=== PATIENT | female | born 1995 | race African-American/Black ===

== ENCOUNTER 2024-05-15 09:20 | Emergency (ER) | payer SELFPAY ==
[2024-05-15 09:20] VITALS: BP 124/72; PULSE 72; RESP 16; TEMP 36.6; O2SAT 98; BMI 30.7
--- NOTE | 2024-05-15 09:44 | EDS_ITS ---
HPI History of Present Illness Chief Complaint: Dental Detail of Chief Complaint: Dental pain tooth #12 and 13 per patient Informant: patient Onset/Context/Timing Onset: Yesterday Context: Sudden Onset Timing: Continuous Quality: Pain Location: Abnormality with tooth #12 and 13 per patient Current Severity: Mild Maximum Severity: Severe Worsened by: Chewing and cold liquids Associated Symptoms Assocated Symptom - Dental: face swelling and cold sensitivity; Negative for fever or jaw swelling Narrative Narrative: Patient is a 28-year-old woman who relocated from [place]. Patient had a dental appointment prior to coming to [place]. She was told by her dentist there are issues with tooth #12 and tooth #13. She presents because of chills. She is not complain of subjective fever or objective fever. She does report facial swelling and pain when she attempts to open and close her mouth. She has not anything to eat or drink in 48 hours. She states she does not have dental insurance. She has no allergies to medication. She denies drooling. She denies a traumatic fever, heart murmur or SBE. She has not noted any skin lesions. Prior similar symptoms: Yes Recent Illness/Hospitalization: No PFSH PFSH Medical History no medical history no medical history Home Medications ?Medication ?Instructions ?Recorded ?Last Taken ?Type hydrocodone-acetaminophen 5-325mg 1 tab PO Q6H PRN PRN Pain 3 days 05/15/24 Unknown Rx 5mg-325mg #10 TABLETS naproxen 500 mg tablet 500 mg PO BID #20 tabs 05/15/24 Unknown Rx penicillin V potassium 500 mg 500 mg PO 4X/DAY #40 tabs 05/15/24 Unknown Rx tablet Allergy/AdvReac Type Severity Reaction Status Date / Time No Known Allergies Allergy Verified 05/15/24 09:20 Surgical History no surgical history no surgical history [facility] ED Constitutional Constitutional ED: Reports chills; Denies fever(s), subjective or sweats Eyes Eyes: Denies blurry vision or change in vision ENT ENT ED: Reports other Details: Per HPI narrative ; Denies ear pain, rhinorrhea or sore throat Cardiovascular Cardiovascular: Denies chest pain, palpitations or racing heartbeat Respiratory/Chest Respiratory/Chest: Denies dyspnea Gastrointestinal Gastrointestinal: Denies nausea or vomiting Integumentary Denies rash Neurologic Neurologic: Denies headache(s) Hematologic/Lymphatic Hematologic/Lymphatic: Denies easy bleeding or easy bruising EXAM Physical Exam Const Vital Signs: 05/15/24 09:20 Temperature 97.8 F Temperature Source Temporal Pulse Rate 72 Respiratory Rate 16 Blood Pressure 124/72 H Blood Pressure Mean 89 Pulse Ox 98 Oxygen Delivery Method Room Air Positive well nourished and well developed Constitutional Narrative: Patient does not appear in obvious discomfort. General Appearance ED: well developed HEENT Reports TM's clear HEENT Narrative: There is tenderness over the left maxillary region. This would be superior to tooth #12 and 13. tenderness; Negative for trauma Face and Sinus: Negative for sinuses nontender Tympanic Membrane ED: Yes TM's clear Mouth ED: Yes lips normal, Yes tongue normal, Yes salivary gland normal, No mouth trauma and Yes oral and palatal mucosa abnormal Mouth: lips normal, tongue normal, salivary gland normal, No mouth trauma and oral and palatal mucosa abnormal Teeth and Gingiva: caries; Negative for gingiva abnormal, poor dentition or teeth discoloration Throat: posterior oropharynx normal Eyes PERRL and EOMs intact bilaterally Neck no lymphadenopathy, supple and no JVD Resp normal respiratory effort, no retractions and clear to auscultation bilaterally Cardio regular rate, regular rhythm, S1 normal heart sound, S2 normal heart sound and no murmurs Extremity normal to inspection Neuro oriented x3 and CN's II-XII intact bilaterally Sensorium / Orientation: alert Psych mental status grossly normal Skin no rashes or lesions noted MDM MDM MDM Narrative Medical decision making narrative: Patient has significant tenderness with tapping of tooth #12. Patient had severe pain drinking cold iced water. These findings are consistent with reversible pulpitis and clinically patient has an apical abscess. There is no evidence of fistulization. Patient received dose of Naprosyn and penicillin department. She was discharged prescription for [place], Naprosyn and penicillin. She also was given dental sheet. Discharge Plan Triage Chief Complaint: Dental ED Provider: Jaquan Mcgrath Dx/Rx/DC Orders Clinical Impression: Abscess, apical, Symptomatic reversible pulpitis Instructions: ED Dental Abscess Prescriptions: New hydrocodone-acetaminophen 5-325 mg tablet 1 tab PO Q6H PRN PRN (Reason: Pain) 3 Days Qty: 10 0RF penicillin V potassium 500 mg tablet 500 mg PO 4X/DAY Qty: 40 0RF naproxen 500 mg tablet 500 mg PO BID Qty: 20 0RF Primary Care Provider: Care Physician,No Primary Activity Restrictions/Additional Instructions: You will need to contact a local dentist. Your pain may go away in 2 weeks. If your pain lasts longer than 2 weeks you have irreversible pulpitis and the other 1 that we will be able to alleviate your pain as a dentist. Print Language: Albanian Disposition Disposition: Home, Self Care
[2024-05-15] MEDS: Naproxen 500 MG Tablet PO (10:24)
[2024-05-15] MEDS: Penicillin Vk 250 MG Tablet 500 MG PO (10:24)
[2024-05-15 10:32] VITALS: BP 140/76; PULSE 64; RESP 16; TEMP 36.6; O2SAT 99
--- NOTE | 2024-05-15 12:11 | CM.ED ---
Social work Reason for referral: Medicaid application request Referral source: Registration This SARAH and SARAH Chery were informed by registration that patient had recently moved from [place] to [place] and was interested in completing a Medicaid application. Patient was about to get discharged from the ED, so SARAH Chery printed an application and instructions on other ways that patient could apply. This SARAH and SARAH Chery entered patient room, identifying reason for visit. Patient stated she had been a resident of [place] for one month and patient had an [place] license. SARAH Chery explained patient options for applying for Medicaid and asked if patient had other needs. 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 Patient presented in the ED for dental reasons. Patient accepted resources of [facility] (due to medical and dental options) as well as a [facility] provider directory. No other needs identified at this time. Sunshine Nguyen, ENCAPSULATOR, CLINICAL NURSING ASSISTANT
== END 2024-05-15 10:34 | disposition home or self-care (01) ==
PROVIDERS: Emergency Provider Emergency Medicine; Visit Provider Emergency Medicine
DX: K08.89 Other specified disorders of teeth and supporting structures (principal); L02.91 Cutaneous abscess, unspecified; K04.01 Reversible pulpitis
CPT/HCPCS: 99283

== ENCOUNTER 2024-08-26 20:11 | Emergency (ER) | payer SELFPAY ==
[2024-08-26 20:11] VITALS: BP 109/63; PULSE 120; RESP 19; TEMP 37.4; O2SAT 97; BMI 30.7
--- NOTE | 2024-08-26 20:27 | EX.ED.DYSGE1 ---
HPI History of Present Illness Chief Complaint: General Illness Narrative Narrative: 8-year-old female who denies significant past medical history presents with chills, body aches, cough, and sore throat when she coughs. She relates history that she was here 2 days ago and her children were diagnosed with influenza A. One of her children also had strep throat. She started feeling badly today at work. She has not taken any medications. She states that she did not feel feverish but still very cold and her whole body hurts. No shortness of breath. [facility] Medical History (Updated 08/26/24 @ 21:35 by Scott Blanchard MD) Cough Home Medications ?Medication ?Instructions ?Recorded ?Last Taken ?Type oseltamivir 75 mg capsule (Tamiflu) 75 mg PO BID 5 days #10 caps 08/26/24 Unknown Rx Allergy/AdvReac Type Severity Reaction Status Date / Time No Known Allergies Allergy Verified 08/26/24 20:12 Social History Smoking Status: Never smoker ROS ROS ED ROS Narrative Constitutional: No fever, positive chills. Malaise. HEENT: Positive sore throat only when coughing. No neck pain. Cardiovascular: No chest pain. No palpitations. No pedal edema. Respiratory: Positive cough, no shortness of breath. Abdominal: No abdominal pain. No nausea. No vomiting. Genitourinary: No dysuria. No hematuria. Musculoskeletal: Multiple myalgias and arthralgias. Neurologic: No headaches. No dizziness. Positive lightheadedness. Overall feeling of malaise. Skin: No rash. No change in color. EXAM Physical Exam Narrative Exam Narrative: Afebrile, slightly elevated temperature of 99.3. Vital signs noted. Nontoxic-appearing. Neck soft and supple without meningismus. Airway patent. No drooling or trismus. No tonsillar exudate. Cardiovascular examination reveals mild tachycardia. Lungs are clear to auscultation bilaterally, moving a good amount of air, speaking in full sentences. Abdomen soft and nontender. Neurological examination nonfocal and nonlateralizing. Const Vital Signs: 08/26/24 20:11 08/26/24 20:11 08/26/24 20:49 Temperature 99.3 F H 99.3 F H Temperature Source Oral Oral Pulse Rate 120 H 120 H Respiratory Rate 19 H 19 H Respiratory Effort Normal Non-Labored Respiratory Pattern Normal Blood Pressure 109/63 109/63 Blood Pressure Mean 78 78 Pulse Ox 97 97 Oxygen Delivery Method Room Air Room Air MDM MDM MDM Narrative Medical decision making narrative: Differential diagnosis includes but not limited to viral syndrome from influenza A versus COVID versus RSV. I have low suspicion for strep pharyngitis based on her clinical examination and history. Additionally she has a cough with this. I do not feel she needs a rapid strep. However, I did offer to swab her for this and she declined as well. I favor influenza A as her kids were recently diagnosed with this. I do not feel chest x-ray is indicated because her pulse ox is 97% on room air. She was given ibuprofen 800 mg orally here and she was swabbed for COVID, influenza, and RSV. Should she be positive, she could start antivirals as she just became sick today. She will be given a note to be off work for the next 2 days. I reviewed her respiratory swab and she has positive for influenza A. She was given her first dose of Tamiflu here in the emergency department prescription written for the next 5 days. She was referred to a primary care provider. Return instructions to the emergency department were reviewed. Disposition is discharged home in stable condition. History & Record Review Discussion w/independent historian: Patient Lab Data Attestation: I reviewed the patient's lab results. Labs: Respiratory swab positive for influenza A. Discharge Plan Triage Chief Complaint: General Illness ED Provider: Scott Blanchard Dx/Rx/DC Orders Clinical Impression: Viral syndrome, Influenza A Instructions: ED Influenza (Adult), ED Viral Syndrome (Adult) Prescriptions: New oseltamivir [Tamiflu] 75 mg capsule 75 mg PO BID 5 Days Qty: 10 0RF Stand Alone Forms: ED Work / School Excuse Primary Care Provider: Care Physician,No Primary Referrals: Care Physician,No Primary [Primary Care Provider] - Marcos Gray, [facility] [[facility]] - 1 Week if not improving Activity Restrictions/Additional Instructions: Drink plenty of oral fluids. Rest. Take Tamiflu as directed. Tylenol and/or ibuprofen as needed for pain and fever. Return to the emergency department with increased difficulty breathing, new or worsening symptoms. Print Language: Turkmen Disposition Disposition: Home, Self Care
[2024-08-26] MEDS: Ibuprofen 400 MG Tablet 800 MG PO (20:36)
[2024-08-26] MEDS: Oseltamivir Phosphate 75 MG Capsule PO (21:34)
[2024-08-26 21:46] VITALS: BP 115/64; PULSE 95; RESP 16; TEMP 36.8; O2SAT 99
== END 2024-08-26 21:47 | disposition home or self-care (01) ==
PROVIDERS: Emergency Provider Emergency Medicine; Visit Provider Emergency Medicine
DX: J10.1 Influenza due to other identified influenza virus with other respiratory manifestations (principal); B34.9 Viral infection, unspecified
CPT/HCPCS: 87631; 99282

== ENCOUNTER 2024-10-07 21:48 | Emergency (ER) | payer MEDICAID, SELFPAY ==
[2024-10-07 21:48] VITALS: BP 99/63; PULSE 85; RESP 17; TEMP 36.6; O2SAT 98; BMI 30.3
[2024-10-07 23:03] LABS: Absolute Lymphocyte Count 1.96 X10^3/uL (0.83-4.51); Basophil# 0.02 X10^3/uL; Basophil% 0.4 % (0-1); Eosinophil# 0.25 X10^3/uL; Eosinophils% 4.5 % (0-5); Hemoglobin 10.2 g/dL (12.0-15.0); Lymphocyte # 1.96 X10^3/ul (0.83-4.51); Lymphocyte % 35.3 % (19-41); Mean Corp Hgb Conc 30.9 g/dL (32-36); Mean Corpuscular Hgb 22.9 pg (27.0-32.0); Mean Platelet Vol. 10.1 fl (6.2-12.0); Monocyte# 0.37 X10^3/uL; Monocyte% 6.7 % (0-10); NRBC Flagged by Analyzer 0 % (0-5); Neutrophil # 2.95 X10^3/uL (2.7-7.7); Neutrophil % 52.9 % (47-70); Platelet Count 324 K/mm3 (150-450); RBC Distribution Width CV 16.4 % (11.6-14.6); RBC Distribution Width SD 43.8 fl (35.1-43.9); Red Blood Count 4.46 M/mm3 (4.2-5.4); White Blood Count 5.6 K/mm3 (4.4-11.0)
--- NOTE | 2024-10-07 23:06 | EX.ED.DYSGE1 ---
HPI History of Present Illness Chief Complaint: General Illness Narrative Narrative: Chief complaint and HPI: Abdominal pain and concern for . 28-year-old female presents for evaluation of abdominal pain and concern for . Patient states for the past 3 days she has been having intermittent abdominal pain. She has had associated nausea but not frequent. She endorses 1 episode of nonbloody emesis. She states her last bowel movement was at 7 PM however it seemed more firm/constipated in nature. Her last intercourse was approximately 1 month ago. No protection. Not on control. Her last menstrual cycle was 3 weeks ago and it is regular. She denies any concern for STI. No vaginal bleeding. She denies any fever, chills, URI symptoms, chest pain, shortness of breath, cough, dysuria, hematuria. Review of systems: See HPI Medications: As listed on the chart Allergies: As listed on the chart PFSH: Per chart Vital signs: As listed on the chart. Reviewed. Physical exam: Gen: A&O x3, NAD Head: Normocephalic, atraumatic Eyes: No sclera icterus, conjunctiva clear ENT: Moist mucous membranes Neck: Trachea midline, No JVD CV: RRR, no murmurs, no peripheral edema Resp: Lungs CTA BL, no w/r/c GI: Abd soft, non-distended, non-tender, no r/r/g : No CVA tenderness Musc: Full ROM, no deformity Skin: Warm, dry Neuro: Alert, oriented, grossly intact, sensation intact PFSH PFSH Medical History (Updated 10/08/24 @ 00:[address] Deonte Avendaño DO) Cough Home Medications ?Medication ?Instructions ?Recorded ?Last Taken ?Type NK 10/07/24 Unknown History Allergy/AdvReac Type Severity Reaction Status Date / Time No Known Allergies Allergy Verified 10/07/24 21:49 Social History Smoking Status: Never smoker EXAM Physical Exam Const Vital Signs: 10/07/24 21:48 Temperature 98 F Temperature Source Temporal Pulse Rate 85 Respiratory Rate 17 Blood Pressure 99/63 Blood Pressure Mean 75 Pulse Ox 98 Oxygen Delivery Method Room Air MDM MDM MDM Narrative Medical decision making narrative: 28-year-old female presents for evaluation of abdominal pain and concern for . She had 1 episode of nonbilious emesis. Intermittent nausea. Endorses a firmer bowel movement this evening at 7 PM. Differential diagnosis includes but is not limited to viral illness, constipation, , UTI. Suspect less likely intra-abdominal infection such as colitis, cholecystitis, pancreatitis. Patient's physical exam is benign including her abdomen I do not think any imaging is needed at this time. This was discussed with the patient and she is in agreement. Her main concern is if she is . Patient declined anything for pain. Will obtain laboratory workup with urine and urine. CBC without leukocytosis. Patient has a heat anemia with hemoglobin of 10.2. Patient states she has a history of anemia. CMP relatively unremarkable. No STEVE. Lipase unremarkable. No transaminitis. UA negative for UTI. Urine negative. All of the patient's workup was discussed with her. Plan is for discharge home. Follow-up with PCP. Return precautions explained. She confirmed understanding the plan. Impression: 1. Abdominal pain 2. Concern for Lab Data Labs: Laboratory Results - last 24 hr 10/07/24 10/07/24 22:05 23:27 WBC 5.6 RBC 4.46 Hgb 10.2 L Hct 33.0 L MCV 74.0 L MCH 22.9 L MCHC 30.9 L RDW Std Deviation 43.8 RDW Coeff of Stephanie 16.4 H Plt Count 324 MPV 10.1 Immature Gran % (Auto) 0.200 Neut % (Auto) 52.9 Lymph % (Auto) 35.3 Saunders % (Auto) 6.7 Eos % (Auto) 4.5 Baso % (Auto) 0.4 Absolute Neuts (auto) 3.0 Absolute Lymphs (auto) 1.96 Nucleated RBC % 0 Sodium 137 Potassium 3.8 Chloride 108 Carbon Dioxide 20.2 L Anion Gap 9 BUN 20 H Creatinine 0.65 L Estim Creat Clear Calc 138.00 Est GFR (MDRD) Non-Af 124 BUN/Creatinine Ratio 31.0 H Glucose 88 Calcium 9.0 Total Bilirubin 0.16 AST 23 ALT 12 Alkaline Phosphatase 68 Total Protein 7.0 Albumin 3.7 Globulin 3.3 Albumin/Globulin Ratio 1.1 Lipase 31 Urine Color Yellow Urine Clarity Clear Urine pH 6.0 Ur Specific [place] 1.020 Urine Protein 30 H Urine Glucose (UA) Normal Urine Ketones Negative Urine Occult Blood Negative Urine Nitrite Negative Urine Bilirubin Negative Urine Urobilinogen Normal Ur Leukocyte Esterase Negative Urine RBC 0 SEEN Urine WBC 0-5 SEEN Ur Squamous Epith Cells 5-10 SEEN Ur Transition Epith Cell 0-5 SEEN Amorphous Sediment 2+ Urine Bacteria 3+ Urine Mucus 2+ Urine Test Negative Discharge Plan Triage Chief Complaint: General Illness ED Provider: Deonte Avendaño Dx/Rx/DC Orders Clinical Impression: Abdominal pain Prescriptions: No Action NK Primary Care Provider: Care Physician,No Primary Referrals: Francisco Garsia MD [Med Staff - Active Staff] - 3-5 Days Care Physician,No Primary [Primary Care Provider] - Activity Restrictions/Additional Instructions: Follow-up with your primary care physician. If you do not have 1, follow-up with the 1 provided above. Return back to the ED if symptoms change or worsen. Print Language: Japanese Disposition Disposition: Home, Self Care
[2024-10-07 23:34] LABS: ALB/GLOB Ratio 1.1 RATIO (0.9-2.4); AST(SGOT) 23 U/L (<=31); Alanine Aminotransfer ALT/SGPT 12 U/L (<=34); Albumin, Serum 3.7 g/dL (3.5-5.0); Alkaline Phosphatase 68 U/L (35-104); Anion Gap 9 (5-15); BUN 20 mg/dL (4-19); Carbon Dioxide 20.2 mmol/L (21.0-32.0); Chloride 108 mmol/L (98-108); Creatinine, Serum 0.65 mg/dL (0.70-1.20); EST Glomerular Filtration Rate 124 (>60); Globulin 3.3 g/dL (2.2-4.2); Glucose 88 mg/dL (70-99); Lipase 31 U/L (13-75); Potassium 3.8 mmol/L (3.3-5.1); Sodium Level 137 mmol/L (133-145); Total Bilirubin 0.16 mg/dL (0.00-1.30)
[2024-10-07 23:36] LABS: Color, Urine Yellow (Yellow); Glucose, Dipstick Normal (Normal); Ketone-Dipstick Negative (Negative); Leukocyte Esterase-Dipstick Negative /ul (Negative); Nitrite-Dipstick Negative (Negative); Occult Blood-Urine Negative /ul (Negative); Protein-Dipstick 30 mg/dl (Negative); Urine Bilirubin Dipstick Negative (Negative); Urine Clarity Clear (Clear); Urine Urobilinogen Normal (Normal)
[2024-10-07 23:39] LABS: Internal QC Validated? YES +Cl - CLEAR BKGD; Pregnancy, Urine Negative Negative
[2024-10-07 23:48] LABS: Red Blood Cells-Urine 0 SEEN /hpf (0-5); White Blood Cells 0-5 SEEN /hpf (0-5)
[2024-10-07 23:49] LABS: Amorphous Sediment 2+; Bacteria 3+ /hpf (None Seen); Mucous, Urine 2+ /hpf (<or=2+); Squamous Epithelial Cells - UA 5-10 SEEN /hpf (5-10); Transitional Epithelial - Ur 0-5 SEEN /hpf (0-5)
--- NOTE | 2024-10-08 00:14 | ED.RN ---
Pt requesting blood test I did 2 clear blue tests and they were positive, I know my body, I want a blood test. This RN stated you are 2 weeks out from your period and our urine test was negative. Pt educated on the care center for further testing if needed or to return to ER. Pt agreeable.
== END 2024-10-08 00:16 | disposition home or self-care (01) ==
PROVIDERS: Emergency Provider Surgery; Visit Provider Surgery
DX: R10.9 Unspecified abdominal pain (principal)
CPT/HCPCS: 80053; 81001; 81025; 83690; 85025; 99283; A4216